=== PATIENT | male | born 1985 | race Caucasian/White ===

== ENCOUNTER 2025-03-20 12:32 | Emergency (ER) | payer SELFPAY ==
[2025-03-20 13:01] LABS: #Basophils 0.07 10x3/uL (0.0-0.2); #Eosinophils 0.06 10x3/uL (0.0-0.5); #Monocytes 0.47 10x3/uL (0.0-1.1); #Neutrophils 2.49 10x3/uL (1.5-8.4); %Basophils 1.4 % (0.0-2.0); %Eosinophils 1.2 % (0.0-6.0); %Lymphocytes 35.9 % (18.0-47.0); %Monocytes 9.7 % (0.0-10.0); %Neutrophils 51.4 % (40.0-75.0); Hematocrit 48.8 % (38.8-50.0); Hemoglobin 17.0 g/dL (13.5-17.5); Mean Corpuscular Hemoglobin 29.4 pg (27.0-33.0); Mean Corpuscular Volume 84.3 fL (81.2-95.1); Platelet Count 178 10x3/uL (150-450); Red Blood Cell (RBC) Count 5.79 10x6/uL (4.32-5.72); White Blood Cell (WBC) Count 4.85 10x3/uL (3.5-10.5)
[2025-03-20 13:24] LABS: Acetaminophen Less than 10 mcg/mL (Less than 10); Salicylate Less than 8.0 mg/dL (Less than 8.0)
[2025-03-20 13:28] LABS: ALT (SGPT) 114 U/L (Less than 45); AST (SGOT) 89 U/L (11-34); Albumin 4.7 g/dL (3.1-4.5); Alkaline Phosphatase 104 U/L (40-110); Anion Gap 19 mmol/L (10-20); BUN (Urea Nitrogen) 6 mg/dL (8.9-20.6); Bilirubin, Total 0.5 mg/dL (0.3-1.2); Calc. Creatinine Clearance 0 mL/min (70-130); Calcium 8.9 mg/dL (7.8-10.44); Carbon Dioxide 22 mmol/L (22-29); Chloride 106 mmol/L (98-107); Glucose 104 mg/dL (70-105); Potassium 3.7 mmol/L (3.5-5.1); Sodium 143 mmol/L (136-145)
== END 2025-03-20 18:03 | disposition home or self-care (01) ==
LOC: CSHERS 12:32
DX: F10.939 Alcohol use, unspecified with withdrawal, unspecified (principal); I10 Essential (primary) hypertension
CPT/HCPCS: 36415; 80053; 80307; 85025; 93005; 96374; J2060